=== PATIENT | female | born 1925 | race African-American/Black ===

== ENCOUNTER 2017-08-30 19:50 | Emergency (ER) | payer OTHER ==
[~2017-08-30] VITALS: Ht 165.1 cm; Wt 72.6 kg
[2017-08-30 21:06] LABS: Basophils # (auto) 0 uL; Basophils % (auto) 0.4 % (0.0-2.0); Eosinophils # (auto) 0.1 uL; Eosinophils % (auto) 1.3 % (0.0-7.0); Hematocrit 32.2 % (36.0-46.0); Lymphocytes # (auto) 1.7 uL; Lymphocytes % (auto) 26.6 % (10.0-50.0); Mean Corpuscular Hemoglobin 29.9 pg (28.0-32.0); Mean Corpuscular Hgb Conc. 34.1 g/dL (32.0-36.0); Mean Corpuscular Volume 87.7 fL (80.0-100.0); Monocytes # (auto) 0.6 uL; Monocytes % (auto) 9.4 % (0.0-12.0); Neutrophils % (auto) 62.3 % (37.0-80.0); Nucleated Red Blood Cells % 0.1 %; Platelet Count (auto) 319 10^3/uL (140-450); Red Blood Cells 3.67 10^6/uL (4.0-5.20); Red Cell Distribution Width 13.4 % (11.8-14.3); White Blood Cell 6.4 10^3/uL (4.4-10.8)
[2017-08-30 21:18] LABS: Albumin 2.9 g/dL (3.4-5.0); BUN/Creatinine Ratio 18.9; Bilirubin, Total 0.2 mg/dL (0.2-1.0); Calcium 8.8 mg/dL (8.5-10.1); Potassium 4.4 mmol/L (3.5-5.1); Total Protein 7.3 g/dL (6.4-8.2)
[2017-08-30 21:26] LABS: Partial Thromboplastin Time 27.5 sec (23.78-33.04); Prothrombin Time 10.7 sec (9.27-12.13)
[2017-08-30] MEDS ORDERED: INSULIN LANTUS (GLARGINE) 1 /0.01ml (100units/ml) SC ONE (23:15)
[2017-08-31 00:36] VITALS: BP 145/91
== END 2017-08-31 01:56 | disposition home or self-care (01) ==
LOC: EDBD 19:50 → ER 19:55
DX: M17.12 Unilateral primary osteoarthritis, left knee (principal); E11.9 Type 2 diabetes mellitus without complications; I10 Essential (primary) hypertension; Z96.651 Presence of right artificial knee joint
CPT/HCPCS: 36415; 73700; 80053; 82962; 85025; 85610; 85730; 96372; 99285; J1815